=== PATIENT | female | born 1970 | race Caucasian/White ===

== ENCOUNTER → 2017-04-09 | Outpatient (CLI) | payer BC ==
[2013-11-03 15:20] VITALS: BP 113/77
[~2017-04-09] MED LIST: BIRTH CONTROL; NORCO 325 MG-51 TA1 PO
== END ==
LOC: MAMMO 13:41
DX: Z12.31 Encounter for screening mammogram for malignant neoplasm of breast (principal); R92.2 Inconclusive mammogram
CPT/HCPCS: G0202

== ENCOUNTER → 2017-04-18 | Outpatient (CLI) | payer BC ==
[2013-11-03 15:20] VITALS: BP 113/77
== END ==
LOC: MAMMO 12:24
DX: N63 Unspecified lump in breast (principal)

== ENCOUNTER → 2017-10-21 | Outpatient (CLI) | payer BC ==
[2013-11-03 15:20] VITALS: BP 113/77
== END ==
LOC: MAMMO 07:48
DX: D24.1 Benign neoplasm of right breast (principal)

== ENCOUNTER → 2018-04-29 | Outpatient (CLI) | payer BC ==
[2013-11-03 15:20] VITALS: BP 113/77
== END ==
LOC: MAMMO 15:06
DX: Z12.31 Encounter for screening mammogram for malignant neoplasm of breast (principal)

== ENCOUNTER → 2019-04-28 | Outpatient (CLI) | payer OTHER ==
[2013-11-03 15:20] VITALS: BP 113/77
== END ==
LOC: MAMMO 08:28
DX: Z12.31 Encounter for screening mammogram for malignant neoplasm of breast (principal)

== ENCOUNTER → 2022-01-29 | Outpatient (CLI) | payer SELFPAY | LOC: MAMMO 15:30 | DX: Z12.31 Encounter for screening mammogram for malignant neoplasm of breast (principal) ==

== ENCOUNTER → 2023-07-15 | Outpatient (CLI) | payer OTHER | LOC: MAMMO 10:38 | DX: Z12.31 Encounter for screening mammogram for malignant neoplasm of breast (principal) ==

== ENCOUNTER 2023-11-20 12:08 | Emergency (ER) | payer OTHER ==
[~2023-11-20] VITALS: Ht 165.1 cm; Wt 72.7 kg
[2023-11-20 12:28] VITALS: BP 102/86
[2023-11-20] MEDS ORDERED: FLUTICASONE P15.8 ML NS (13:22)
== END 2023-11-20 13:35 | disposition home or self-care (01) ==
LOC: ED 12:08
DX: U07.1 COVID-19 (principal); R09.81 Nasal congestion; J02.9 Acute pharyngitis, unspecified; M79.10 Myalgia, unspecified site; R53.83 Other fatigue; R06.02 Shortness of breath; R05.8 Other specified cough; Z73.0 Burn-out

== ENCOUNTER → 2024-07-08 | Outpatient (REF) | payer OTHER ==
[~2024-07-08] MED LIST changes: +FLUTICASONE P15.8 ML NS
[2024-07-08 18:42] LABS: PH-URINE 6.5 (5.0 - 8.0); URINE APPEARANCE CLEAR (CLEAR); URINE COLOR YELLOW (YELLOW)
[2024-07-08 18:43] LABS: URINE BILIRUBIN NEGATIVE (NEGATIVE); URINE BLOOD NEGATIVE (NEGATIVE); URINE GLUCOSE NEGATIVE (NEGATIVE); URINE KETONE NEGATIVE (NEGATIVE); URINE LEUKOCYTE ESTERASE 1+ (NEGATIVE); URINE MUCUS PRESENT (NOT PRESENT); URINE NITRATE NEGATIVE (NEGATIVE); URINE PROTEIN(semi-quant) NEGATIVE (NEGATIVE)
== END ==
LOC: LAB 18:11
PROVIDERS: Family Medicine
DX: Z00.00 Encounter for general adult medical examination without abnormal findings (principal)

== ENCOUNTER → 2024-08-21 | Outpatient (CLI) | payer OTHER | LOC: MAMMO 08:30 | DX: Z12.31 Encounter for screening mammogram for malignant neoplasm of breast (principal) ==